=== PATIENT | female | born 1960 | race Caucasian/White ===

== ENCOUNTER 2023-06-25 19:54 | Emergency (ER) | payer BC ==
[2023-06-25] MEDS ORDERED: Baclofen 10 MG Tab PO ONE (20:27)
[2023-06-25] MEDS ORDERED: Acetaminophen/HYDROcodone 325-5 MG Tab PO ONE (20:27)
== END 2023-06-25 22:13 | disposition home or self-care (01) ==
LOC: FB.ED 19:54
DX: S73.101A Unspecified sprain of right hip, initial encounter (principal); Z88.6 Allergy status to analgesic agent; X58.XXXA Exposure to other specified factors, initial encounter
CPT/HCPCS: 73502-RT; 99283; A9270-GY